=== PATIENT | female | born 1965 | race Caucasian/White ===

== ENCOUNTER 2016-05-14 09:28 | Inpatient (IN) | payer BC, OTHER ==
[2016-05-13 12:01] VITALS: BMI 40.4
[2016-05-14] VITALS (26 sets, daily range): BP systolic 90–140; BP diastolic 52–75; PULSE 69–106; RESP 10–23; Ht 167.6 cm; Wt 109.6 kg
[~2016-05-14] VITALS: Ht 167.6 cm; Wt 109.6 kg
[~2016-05-14 09:28] MED LIST: CEFAZOLIN 2 GM/50 ML (PMX) 50 ML IVPB ONE; SOD CHLORIDE 0.9% 1,000 ML IV SCH
[2016-05-14] MEDS ORDERED: DIAZ10TA4 PO (10:12)
[2016-05-14] MEDS ORDERED: ERYT250C52 PO (10:13)
[2016-05-14] MEDS ORDERED: LEVO100T82 PO (10:14)
[2016-05-14] MEDS ORDERED: LIOT5TAB3 PO (10:15)
[2016-05-14] MEDS ORDERED: OMEP20CA16 PO (10:16)
[2016-05-14] MEDS ORDERED: LOSA1TAB20 PO (10:16)
[2016-05-14] MEDS ORDERED: POTA20TA96 PO (10:17)
[2016-05-14] MEDS ORDERED: [UNRECOGNIZED DRUG - CODE] TP (10:18)
[2016-05-14] MEDS ORDERED: KEN1O TOP (10:22)
[2016-05-14 10:45] LABS: ADD SCAN DIFF NO
[2016-05-14 10:51] LABS: BASOPHILS % 0.3 % (0.0-2.0); EOSINOPHILS # 0.2 10^3/ul (0.0-0.5); EOSINOPHILS % 1.7 % (0.0-7.0); HEMATOCRIT 41.1 % (37.0-47.0); HEMOGLOBIN 13.9 g/dl (12.0-16.0); LYMPHOCYTES # 2.4 10^3/ul (0.8-2.9); LYMPHOCYTES % 27.5 % (15.0-51.0); MEAN CORPUSCULAR HEMOGLOBIN 28.5 pg (29.0-33.0); MEAN CORPUSCULAR HGB CONC 33.8 g/dl (32.0-37.0); MEAN CORPUSCULAR VOLUME 84.4 fl (82.0-101.0); MEAN PLATELET VOLUME 11.2 fl (7.4-10.4); MONOCYTE # 0.7 10^3/ul (0.3-0.9); MONOCYTES % 7.8 % (0.0-11.0); NEUTROPHIL # 5.4 10^3/ul (1.6-7.5); NEUTROPHILS % 62.4 % (39.0-77.0); PLATELET COUNT 282 10^3/UL (140-415); RED BLOOD COUNT 4.87 10^6/ul (4.20-5.40); WHITE BLOOD COUNT 8.6 10^3/ul (4.8-10.8)
[2016-05-14] MEDS ORDERED: PROPOFOL 100 ML ONE (11:41)
[2016-05-14] MEDS ORDERED: MIDAZOLAM 1 MG/ML 2 ML INJ ONE (11:41)
[2016-05-14] MEDS ORDERED: ROCURONIUM 50 MG INJ ONE (11:41)
[2016-05-14] MEDS ORDERED: HYDROmorphONE 2 MG/ML SYG ONE (11:41)
[2016-05-14] MEDS ORDERED: CEFAZOLIN 1 GM INJ ONE (11:42)
--- NOTE | 2016-05-14 12:03 | HPN ---
Date/Time of Note Date/Time of Note DATE: 05/14/16 TIME: 12:03 Interval H&P Admission Note Pt. seen H&P reviewed: No system changes DREW MORALES PA-C May 14, 2016 12:03
[2016-05-14] MEDS ORDERED: HYDROmorphONE 1 MG/ML SYG IV PRN (12:30)
[2016-05-14] MEDS ORDERED: NALOXONE (0.4 MG/ML) INJ IV PRN (12:30)
[2016-05-14] MEDS ORDERED: HYDROCODONE/APAP (10/325) TAB PO PRN (12:30)
[2016-05-14] MEDS ORDERED: CYCLOBENZAPRINE 10 MG TAB PO PRN (12:30)
[2016-05-14] MEDS ORDERED: ACETAMINOPHEN 325 MG TAB PO PRN (12:30)
[2016-05-14] MEDS ORDERED: DIPHENHYDRAMINE 50 MG INJ IV PRN ×2 (12:30→14:00)
[2016-05-14] MEDS ORDERED: ZOLPIDEM 5 MG TAB PO PRN (12:30)
[2016-05-14] MEDS ORDERED: AL HYDROX/MG HYDROX/SIMETH 30 ML CUP PO PRN (12:30)
[2016-05-14] MEDS ORDERED: HYDROmorphONE 0.2 MG/ML PCA IV SCH (12:30)
[2016-05-14] MEDS ORDERED: CEFAZOLIN 1 GM/50 ML (PMX) 50 ML IVPB SCH (12:30)
[2016-05-14] MEDS ORDERED: BISACODYL 10 MG SUPP PR PRN (12:30)
[2016-05-14] MEDS ORDERED: POLYMYXIN/BACITRACIN 1L IRRIG ONE ×2 (12:37→12:40)
[2016-05-14] MEDS ORDERED: SURGIFOAM POWDER 1 GM KIT ONE (12:39)
[2016-05-14] MEDS ORDERED: BUPIVACAINE 0.25%/EPI (SDV) 30 ML INJ ONE (12:40)
[2016-05-14] MEDS ORDERED: THROMBIN 5000 UNIT VIAL ONE (12:40)
[2016-05-14] MEDS ORDERED: PHENYLephrine (100 MCG/ML) 5ML SYG ONE (13:05)
[2016-05-14] MEDS ORDERED: ONDANSETRON 4 MG INJ IV PRN (14:00)
[2016-05-14] MEDS ORDERED: FENTAnyl 50 MCG/ML VIAL IV PRN ×3 (14:00)
[2016-05-14] MEDS ORDERED: ALBUMIN HUMAN 5% 250 ML IV PRN (14:00)
[2016-05-14] MEDS ORDERED: HYDROmorphONE (0.2 MG/ML) 10ML SYG IV PRN ×2 (14:00)
[2016-05-14] MEDS ORDERED: LABETALOL HCL 20MG INJ IV PRN (14:00)
[2016-05-14] MEDS ORDERED: EPHEDrine SULFATE 50 MG/5 ML SYG IV PRN (14:00)
[2016-05-14] MEDS ORDERED: hydrALAzine 20 MG INJ IV PRN (14:00)
[2016-05-14] MEDS ORDERED: MEPERIDINE 25 MG INJ IV PRN (14:00)
[2016-05-14] MEDS ORDERED: morphine (1 MG/ML) 10ML SYRINGE IV PRN ×3 (14:00)
[2016-05-14] MEDS ORDERED: METOCLOPRAMIDE 10 MG INJ ONE (14:18)
[2016-05-14] MEDS ORDERED: ONDANSETRON 4 MG INJ ONE ×2 (14:18→15:02)
[2016-05-14] MEDS ORDERED: FAMOTIDINE 20 MG INJ ONE (14:18)
[2016-05-14] MEDS ORDERED: DEXAMETHASONE 4 MG/ML 1 ML INJ ONE (14:18)
[2016-05-14] MEDS ORDERED: NEOSTIGMINE 3 MG/3 ML SYRINGE ONE (14:53)
[2016-05-14] MEDS ORDERED: GLYCOPYRROLATE 1 MG INJ ONE (14:53)
[2016-05-14] MEDS ORDERED: ACETAMINOPHEN 1000MG/100ML IV 100 ML ONE (14:54)
[2016-05-14] MEDS: HYDROmorphONE (0.2 MG/ML) 10ML SYG IV PRN ×4 (15:28→15:50)
--- NOTE | 2016-05-14 16:21 | RADRPT ---
PROCEDURE: Intraoperative imaging of the cervical spine with fluoroscopy. CLINICAL INDICATION: Neck pain. Intraoperative. TECHNIQUE: 3 images of the cervical spine were obtained in the operating room with an image intens ifier. No radiologist was in attendance. 14.4 seconds of fluoroscopy time was used. COMPARISON: No prior study is available for comparison. FINDINGS: Surgical instruments are noted overlying the cervical spine. The final images demonstrate anterior fusion with plate and screws at C6-7. IMPRESSION: 1. Intraoperative imaging of the cervical spine. RPTAT: QQ .Daryl Costa MD, MD Date Time Electronically viewed and signed by .Daryl Costa MD, on 05/14/2016 16:21 .R/
--- NOTE | 2016-05-14 16:21 | OPR ---
DATE OF OPERATION: 05/14/2016 PREOPERATIVE DIAGNOSES: 1. C6 to C7 disk herniation and stenosis with radiculopathy. 2. Morbid obesity (BMI 39) POSTOPERATIVE DIAGNOSES: 1. C6 to C7 disk herniation and stenosis with radiculopathy. 2. Morbid obesity (BMI 39) OPERATION PERFORMED: 1. Anterior cervical diskectomy and spinal cord decompression at C6 to C7. 2. Placement of intervertebral biomechanical device at C6 to C7. 3. Anterior hardware placement at C6 to C7. 4. Use of allograft. 5. Use of C-arm fluoroscopy with interpretation without radiologist present. 6. Use of operative microscope. 7. Intraoperative neuromonitoring (2 hours). IMPLANTS: 1. NeuroStructures Cavetto 5 x 14 x 16 mm PEEK cage. 2. NeuroStructures Transom 12 mm cervical plate with 14 mm screws. PRIMARY SURGEON: Roel Barone MD DETECTIVE AUTOMOBILE SECTION: DENILSON Rodriguez. NEED FOR RETAIL SALES LEAD: During this spinal surgical procedure, my assistant quality manager was used to retrac t and protect the spinal nerves and dural sac. My assistant quality manager also employed the suction catheters to evacuate blood from the surgical field to improve visualization of the neural structures. The pura tant was medically necessary to facilitate the completion of the surgery in a safe and expeditious m steven. State of [place] regulations, as well as hospital bylaws, preclude the use of non-license d health care personnel, such as operating room technicians, to perform these functions. FINDINGS: Neuromonitoring at the start of the case revealed left C7 amplitude down 30%, right C7 am plitude down 20%. At the end of the case, nerve signals returned to normal. The patient had hernia tion at C6 to C7 with a posterior osteophyte resulting in stenosis. ESTIMATED BLOOD LOSS: 40 mL. DRAINS: None. SPECIMENS: Disk was sent to Pathology. COMPLICATIONS OF PROCEDURES: None. ANESTHESIOLOGIST: Dr. Kelley TYPE OF ANESTHESIA: General. INDICATIONS FOR PROCEDURE: This is a 50-year-old female with chronic neck and arm pain in the setti ng of disk herniation and stenosis at C6 to C7. She has failed nonoperative measures; therefore, I recommended proceeding with the above-mentioned surgery. Preoperatively, we discussed the risks, be nefits, and alternatives. She understood and wished to proceed. DESCRIPTION OF PROCEDURE IN DETAIL: The patient was identified in the preoperative holding area, gi buddy Ancef antibiotic, taken to the operating room, where she was placed in the operative table in pace pine position. Neuromonitoring leads were placed, sequential compressive devices were applied. Ruben romonitoring was utilized during the procedure for 2 hours to include SSEP, MEP, and EMG. This was performed by [facility]. Start time was 1:00 p.m., closure time was 3:00 p.m. Towel rolls we re placed behind the neck and between the scapular blades. K-Pads were used to bring down the skin on the chest in order to visualize the neck. Due to the patient's morbid obesity, an additional 30 minutes were spent during the procedure due to the altered field. The neck was prepped and draped i n usual sterile fashion. A left-sided approach to the neck was made at the skin incision. The plat ysma was incised in line with the skin incision. I then identified an interval between the sternocl eidomastoid and strap muscles and identified the anterior spine. A bent spinal needle was placed in to what was felt to be the C6 to C7 level and a lateral film was obtained to confirm the correct lev els. Once this was confirmed, the longus colli musculature was subperiosteally dissected. I remove d anterior osteophytes at C6 to C7 and placed a self-retaining retractor. Anesthesiologist deflated and reinflated the endotracheal cuff. Next, a microscope was brought in and a radical diskectomy w as performed at the C6 to C7 level using curettes, Kerrison punches, pituitary rongeurs and a high s peed bur. The posterior longitudinal ligament was removed and the central extruded fragment was sujit ntified. I then removed the posterior osteophytes which were inferior to the disk space in order to further decompress the canal. Once this was done, all nerve signals returned to normal. I placed various trials and chose the appropriate graft height. I then took the PEEK cage, within which I pl aced allograft and I impacted the intervertebral biomechanical device into the C6-7 level to complet e the anterior fusion at this level. Next, I took the anterior cervical plate and placed this anter iorly at C6 to C7 with 14 mm screws. I locked down the screws next. I then took final AP and later al images and I was happy with placement of the hardware and alignment of the spine. The wound was then irrigated. Hemostasis was achieved with bipolar cautery and Surgifoam. The wound was dry and therefore, I elected not to place a drain. Retractors were removed, and the microscope was taken of f the field. Then, I closed the platysma with a running 2-0 Vicryl stitch. I then closed subcutane ous layer with a 3-0 Vicryl stitch. Dermabond was then applied. The patient was then awakened from anesthesia and taken to recovery room in stable condition. Lap, sponge, and instrument counts were correct x2. There were no apparent complications during the procedure. The patient will be admitted to the [facility] for routine postoperative care to include pain c ontrol, neurovascular checks, antibiotics, and physical therapy. Dictated By: ROEL MINAYA/TYSHAWN Conf#: [id number] DID#: [id number]
[2016-05-14] MEDS: ONDANSETRON 4 MG INJ IV PRN ×2 (17:23→23:21)
[2016-05-14] MEDS: D5W-0.45 NACL + KCL 20 MEQ 1,000 ML IV SCH ×2 (17:24→22:03)
--- NOTE | 2016-05-14 20:12 | CONS ---
DATE OF ADMISSION: 05/14/2016 DATE OF CONSULTATION: TYPE OF CONSULTATION: Medical. Thank you, Dr. Barone, for asking me to participate in medical management of this patient. REASON FOR CONSULTATION: To manage the patient's hypertension, gastroparesis and hypothyroidism. HISTORY OF PRESENT ILLNESS: This 50-year-old female is now postop a cervical spine surgery by Dr. Ava marquez. The patient was having intractable posterior neck, shoulder and arm pain from a C6-C7 spi nal stenosis. The patient underwent surgery today by Dr. Barone. He performed an anterior cervi jaimlah diskectomy and spinal cord decompression at the C6-7 level. The patient had a C6-C7 disk hernia tion with stenosis and radiculopathy. The patient is awake and alert at this time. She denies any chest pain or shortness of breath. She is having her pain controlled with a Dilaudid FILTERS ASSEMBLER. The alexi ent did see her primary care physician preoperatively. There is a note on the chart from Dr. Mohit Guadarrama and it details the patient's past medical history. PAST MEDICAL HISTORY: This patient has a history of: 1. Anemia. 2. Iron deficiency. 3. Gastroesophageal reflux disease. 4. Chronic constipation. 5. Irritable bowel syndrome. 6. Autoimmune hepatitis, treated with steroids in 2013. 7. Gastroparesis. 8. Hypothyroidism. 9. Generalized anxiety disorder. 10. History of thyrotoxicosis with thyroid crisis. 11. Essential hypertension. 12. Degenerative cervical spinal stenosis. PAST SURGICAL HISTORY: Upper gastrointestinal endoscopy, laparoscopic cholecystectomy, shoulder yogi snehal, lumbar spine epidural injection. CURRENT MEDICATIONS: Include the followin. Diazepam 10 mg at bedtime for sleep. 2. Erythromycin 250 mg 2 times a day for gastroparesis. 3. Levothyroxine 100 mcg daily. 4. Liothyronine 5 mcg daily. 5. Losartan HCT 100/25 p.o. daily. 6. Omeprazole 20 mg a day p.r.n. heartburn. 7. Potassium chloride 20 mEq p.o. daily. ALLERGIES: THE PATIENT HAS NO KNOWN DRUG ALLERGIES. SOCIAL HISTORY: The patient does not smoke. She does not drink alcohol. She is a homemaker. She lives with her family. PHYSICAL EXAMINATION: GENERAL: At this time reveals a well-developed, obese female in no apparent distress. VITAL SIGNS: Temperature is 98.1, pulse of 98, respirations 19, blood pressure 110/73, O2 saturatio n 95% on 2 liter nasal cannula. HEAD: Normocephalic. EYES: Extraocular muscles intact. NOSE AND MOUTH: Normal. NECK: There is a fresh wound on the left side of her neck which is closed without any swelling or e rythema. HEART: Regular rhythm. No murmurs, gallops or rubs. LUNGS: Clear to auscultation. ABDOMEN: Soft, nontender, no masses or megaly. EXTREMITIES: No peripheral edema. IMPRESSION: This patient is stable after surgery today. Her vital signs are acceptable. Her blood pressure is controlled. She did take her antihypertensive and thyroid medication preoperatively th is morning. The patient has had some nausea with vomiting. This seems to be subsiding. PLAN: 1. Resume some routine medications. 2. Check labs in the morning. 3. Postop cervical spine surgery. 4. I will follow the patient along with you. Dictated By: VIJI MATIAS MD, ND/TYSHAWN Conf#: [id number] DID#: [id number]
[2016-05-14] MEDS: CEFAZOLIN 1 GM/50 ML (PMX) 50 ML IVPB SCH (20:37)
[2016-05-14] MEDS ORDERED: DIAZEPAM 5 MG TAB PO SCH (21:00)
[2016-05-14] MEDS: TRIAMCINOLONE ACET 0.1% 15 GM OINT TOP SCH (21:00)
[2016-05-14] MEDS: DOCUSATE SODIUM 100 MG CAP PO SCH (21:00)
[2016-05-14] MEDS: ERYTHROMYCIN BASE (EC) 250 MG TAB PO SCH (21:59)
[2016-05-15] MEDS: TRIMETHOBENZAMIDE 100 MG/ML VIAL IM PRN ×2 (00:47→09:10)
[2016-05-15] MEDS: D5W-0.45 NACL + KCL 20 MEQ 1,000 ML IV SCH (03:05)
[2016-05-15] MEDS: CEFAZOLIN 1 GM/50 ML (PMX) 50 ML IVPB SCH ×2 (05:26→12:50)
[2016-05-15] MEDS: ONDANSETRON 4 MG INJ IV PRN (05:26)
[2016-05-15 05:29] LABS: ADD SCAN DIFF NO
[2016-05-15 05:41] VITALS: BP 114/64; PULSE 63; RESP 18
[2016-05-15 05:46] LABS: BASOPHILS % 0.1 % (0.0-2.0); HEMATOCRIT 39.6 % (37.0-47.0); HEMOGLOBIN 12.9 g/dl (12.0-16.0); LYMPHOCYTES # 1.2 10^3/ul (0.8-2.9); LYMPHOCYTES % 8.2 % (15.0-51.0); MEAN CORPUSCULAR HEMOGLOBIN 28.4 pg (29.0-33.0); MEAN CORPUSCULAR HGB CONC 32.6 g/dl (32.0-37.0); MEAN PLATELET VOLUME 10.5 fl (7.4-10.4); MONOCYTE # 0.4 10^3/ul (0.3-0.9); MONOCYTES % 2.9 % (0.0-11.0); NEUTROPHIL # 13.1 10^3/ul (1.6-7.5); NEUTROPHILS % 88.4 % (39.0-77.0); PLATELET COUNT 404 10^3/UL (140-415); RED BLOOD COUNT 4.55 10^6/ul (4.20-5.40); RED CELL DISTRIBUTION WIDTH 13.8 % (11.5-14.5); WHITE BLOOD COUNT 14.8 10^3/ul (4.8-10.8)
[2016-05-15 05:48] LABS: POTASSIUM 4.2 mmol/L (3.5-5.1)
[2016-05-15 05:50] LABS: CREATININE 0.62 mg/dl (0.44-1.00)
[2016-05-15 05:51] LABS: CALCIUM 9.3 mg/dl (8.4-10.2)
[2016-05-15] MEDS ORDERED: LEVOTHYROXINE 100 MCG TAB PO SCH (07:00)
[2016-05-15] MEDS ORDERED: LIOTHYRONINE 5 MCG TAB PO SCH (07:20)
[2016-05-15 07:44] VITALS: BP 117/69; RESP 17
--- NOTE | 2016-05-15 08:39 | PN ---
Date/Time of Note Date/Time of Note DATE: 05/15/16 TIME: 08:38 Assessment/Plan Lines/Catheters IV Catheter Type (from Nrsg): Peripheral IV Kidd in Place (from Nrsg): No Assessment/Plan Assessment/Plan D/C HISTORIOGRAPHY PROFESSOR start PO medications - norco and zofran as ordered please call if zofran insufficient continue with therapy today Subjective 24 Hr Interval Summary reports improvement arm sx c/o neck pain c/o nausea with HISTORIOGRAPHY PROFESSOR Exam/Review of Systems Vital Signs Vitals Vital Signs Date Time Temp Pulse Resp B/P Pulse Ox O2 Delivery O2 Flow Rate FiO2 05/15/16 07:44 97.8 63 17 117/69 95 05/15/16 05:41 Nasal Cannula 3.0 Intake and Output 05/14/16 05/14/16 05/15/16 15:00 23:00 07:00 Intake Total 1550 ml 1150 ml Output Total 30 ml 1100 ml Balance 1520 ml 50 ml Exam Free Text/Dictation NVID AOx3 Results Result Diagram: 05/15/16 0438 05/15/16 0438 DREW MORALES PA-C May 15, 2016 08:39
--- NOTE | 2016-05-15 08:50 | CONS ---
Date/Time of Note Date/Time of Note DATE: 05/15/16 TIME: 08:42 Assessment/Plan Assessment/Plan Chief Complaint/Hosp Course 1. she is 1 day post op a cervical spine surgery . she is having pain in neck and pain medication is being adjusted . 2. her labs are acceptable 3. will continue current medication and PT . Problems: Consultation Date/Type/Reason Admit Date/Time May 14, 2016 at 09:28 Initial Consult Date 24 HR Interval Summary Free Text/Dictation She is awake and alert . She is complaining of pain in the neck .Her nausea is better with Tigan . Exam/Review of Systems Vital Signs Vitals Vital Signs Date Time Temp Pulse Resp B/P Pulse Ox O2 Delivery O2 Flow Rate FiO2 05/15/16 07:44 97.8 63 17 117/69 95 05/15/16 05:41 Nasal Cannula 3.0 Intake and Output 05/14/16 05/14/16 05/15/16 15:00 23:00 07:00 Intake Total 1550 ml 1150 ml Output Total 30 ml 1100 ml Balance 1520 ml 50 ml Exam Constitutional: alert, oriented Respiratory: clear to auscultation Cardiovascular: regular rate and rhythm Musculoskeletal: nl extremities to inspection Results Result Diagram: 05/15/16 0438 05/15/16 0438 Results 24 hrs Laboratory Tests Test 05/14/16 10:28 05/15/16 04:38 Basophils # 0.0 0.0 Basophils % 0.3 0.1 Eosinophils # 0.2 0.0 Eosinophils % 1.7 0.0 Hematocrit 41.1 39.6 Hemoglobin 13.9 12.9 Lymphocytes # 2.4 1.2 Lymphocytes % 27.5 8.2 L Mean Corpuscular Hemoglobin 28.5 L 28.4 L Mean Corpuscular Hemoglobin Concent 33.8 32.6 Mean Corpuscular Volume 84.4 87.0 Mean Platelet Volume 11.2 H 10.5 H Monocytes # 0.7 0.4 Monocytes % 7.8 2.9 Neutrophils # 5.4 13.1 H Neutrophils % 62.4 88.4 H Nucleated Red Blood Cells # 0.0 0.0 Nucleated Red Blood Cells % 0.0 0.0 Platelet Count 282 404 # Red Blood Count 4.87 4.55 Red Cell Distribution Width 14.0 13.8 White Blood Count 8.6 14.8 #H Anion Gap 18 H Blood Urea Nitrogen 10 Calcium Level 9.3 Carbon Dioxide Level 28 Chloride Level 99 Creatinine 0.62 Glucose Level 172 Magnesium Level 2.0 Potassium Level 4.2 Sodium Level 141 Medications Medications Current Medications Potassium Chloride/Dextrose/ Sod Cl (D5-1/2ns + KCl 20 Meq) 1,000 ml @ 100 mls/ hr Q10H IV Last administered on 05/15/16 03:05; Admin Dose 100 MLS/HR; Start at 12:03 Acetaminophen/ Hydrocodone Bitart (Camby (10/325)) 1 tab Q4H PRN PO PAIN LEVEL 1-5; Start 05/14/16 at 12:30; Status Future Hold Acetaminophen/ Hydrocodone Bitart (Camby (10/325)) 2 tab Q4H PRN PO PAIN LEVEL 6-10; Start 05/14/16 at 12:30; Status Future Hold Hydromorphone HCl (Dilaudid) 0.2 mg Q1H PRN IV BREAKTHROUGH PAIN; Start at 12:30 Ondansetron HCl (Zofran Inj) 4 mg Q6H PRN IV NAUSEA AND/OR VOMITING Last administered on 05/15/16 05:26; Admin Dose 4 MG; Start 05/14/16 at 12:30 Bisacodyl (Dulcolax Supp) 10 mg DAILY PRN UT CONSTIPATION; Start 05/14/16 at 12 :30 Docusate Sodium (Colace) 100 mg BID PO ; Start 05/14/16 at 21:00 Al Hydrox/Mg Hydrox/Simethicone (Mag-Al Plus) 15 ml Q6H PRN PO CONSTIPATION/ DYSPEPSIA; Start 05/14/16 at 12:30 Acetaminophen (Tylenol Tab) 650 mg Q4H PRN PO ALATORRE OR TEMP GREATER THAN 101.3F; Start 05/14/16 at 12:30 Cyclobenzaprine HCl (Flexeril) 10 mg TID PRN PO MUSCLE SPASMS; Start 05/14/16 at 12:30 Phenol (Cepastat Lozenge) 1 lozenge PRN PRN MT SORE THROAT; Start 05/14/16 at 12:30 Diphenhydramine HCl (Benadryl) 25 mg Q6H PRN IV ITCHING Last administered on 15:46; Admin Dose 25 MG; Start 05/14/16 at 12:30 Naloxone HCl (Narcan) 0.2 mg Q2M PRN IV RR 8 BREATHS/MIN OR LESS; Start at 12:30 Hydromorphone HCl (Dilaudid PHYSICAL THERAPY RESIDENT) PHYSICAL THERAPY RESIDENT to be started in PACU Q4PCA IV Last administered on 05/14/16 15:40; Admin Dose 6 MG; Start 05/14/16 at 12:30 Miscellaneous Information 1. Hold PHYSICAL THERAPY RESIDENT at 1,000... PHYSICAL THERAPY RESIDENT IV ; Start 05/14/16 at 12: 30 Cefazolin Sodium (Ancef 1 Gm/50 ml (Pmx)) 50 ml @ 100 mls/hr Q8H IVPB Last administered on 05/15/16 05:26; Admin Dose 100 MLS/HR; Start 05/14/16 at 21:00; Stop 05/15/16 at 13:29 Diazepam (Valium) 10 mg QHS PO Last administered on 05/14/16 21:59; Admin Dose 10 MG; Start 05/14/16 at 21:00 Erythromycin (Erythromycin Base (Ec)) 250 mg BID PO Last administered on 21:59; Admin Dose 250 MG; Start 05/14/16 at 21:00 Triamcinolone Acetonide (Kenalog 0.1% Oint) 1 applic BID TOP ; Start 05/14/16 at 21:00 Miscellaneous Information (*Order Clarification Bulletin) TRIAMCINOLONE OINTMENT ; PLE... Q8H XX ; Start 05/14/16 at 20:00 Trimethobenzamide HCl (Tigan) 200 mg Q8H PRN IM NAUSEA AND/OR VOMITING Last administered on 05/15/16 00:47; Admin Dose 200 MG; Start 05/15/16 at 00:30 VIJI MATIAS MD May 15, 2016 08:50
[2016-05-15] MEDS: ERYTHROMYCIN BASE (EC) 250 MG TAB PO SCH (08:53)
[2016-05-15] MEDS: TRIAMCINOLONE ACET 0.1% 15 GM OINT TOP SCH (08:57)
[2016-05-15] MEDS: DOCUSATE SODIUM 100 MG CAP PO SCH (08:57)
[2016-05-15] MEDS: CEPASTAT LOZENGE MT PRN ×2 (09:10→14:58)
[2016-05-15] MEDS: HYDROCODONE/APAP (10/325) TAB PO PRN ×2 (09:11→14:57)
--- NOTE | 2016-05-15 13:14 | DS ---
DATE OF ADMISSION: 05/14/2016 DATE OF DISCHARGE: 05/15/2016 ADMITTING DIAGNOSIS: Cervical stenosis. DISCHARGE DIAGNOSIS: Cervical stenosis. PROCEDURE: Patient WAS taken to the operating room on 05/14/2016, underwent ACDF at C6-C7. HOSPITAL COURSE: Patient admitted to [facility] after undergoing above procedure. By postop d ay 1, she was deemed stable for discharge with followup arranged with the undersigned. Mich was c alled into the pharmacy. Dictated By: NICOLETTE RODRIGUEZ MD BB/NTS Conf#: [id number] DID#: [id number]
== END 2016-05-15 16:15 | disposition home or self-care (01) | DRG 473 ==
LOC: REC 09:28 → MS1 16:50
PROVIDERS: ADMIT Specialist; ATTEND Specialist
PROC: 0RT30ZZ Resection of Cervical Vertebral Disc, Open Approach (ICD-10-PCS; 2016-05-14)
PROC: 0RG10A0 Fusion of Cervical Vertebral Joint with Interbody Fusion Device, Anterior Approach, Anterior Column, Open Approach (ICD-10-PCS; principal; 2016-05-14 12:30)
DX: M50.123 Cervical disc disorder at C6-C7 level with radiculopathy (principal); E66.01 Morbid (severe) obesity due to excess calories; I10 Essential (primary) hypertension; M48.02 Spinal stenosis, cervical region; M47.22 Other spondylosis with radiculopathy, cervical region; E03.9 Hypothyroidism, unspecified; K21.9 Gastro-esophageal reflux disease without esophagitis; Z68.39 Body mass index [BMI] 39.0-39.9, adult
CPT/HCPCS: 72040; 80048; 83735; 84703; 85025; 97116; 97162; 97530; C1713; J0131; J0690; J1100; J1170; J1200; J1644; J2250; J2370; J2405; J2710; J2765; J3250; J3480

== ENCOUNTER 2017-03-03 10:00 | Inpatient (IN) | payer OTHER ==
[~2017-03-03] VITALS: Ht 167.6 cm; Wt 110.9 kg
[2017-03-03] VITALS (24 sets, daily range): BP systolic 82–141; BP diastolic 36–98; PULSE 94–120; RESP 10–19; Ht 167.6 cm; Wt 110.9 kg
[~2017-03-03 10:00] MED LIST changes: +ATROPINE 1 MG/10 ML SYRINGE IV PRN; -CEFAZOLIN 2 GM/50 ML (PMX) 50 ML IVPB ONE; +DIAZ10TA4 PO; +DIPHENHYDRAMINE 50 MG INJ IV PRN; +EPHEDrine SULFATE 50 MG/5 ML SYG IV PRN; +ERYT250C52 PO; +FENTAnyl 50 MCG/ML VIAL IV PRN; +FENTAnyl 50 MCG/ML VIAL ONE; +GLYCOPYRROLATE 0.4 MG INJ ONE; +HYDROmorphONE (0.2 MG/ML) 10ML SYG IV PRN; +KEN1O TOP; +LABETALOL HCL 20MG INJ IV PRN; +LEVO100T82 PO; +LIDOCAINE 2% (SDV) 5 ML INJ ONE; +LIOT5TAB3 PO; +LOSA1TAB25 PO; +MEPERIDINE 25 MG INJ IV PRN; +MIDAZOLAM 1 MG/ML 2 ML INJ IV PRN; +MIDAZOLAM 1 MG/ML 2 ML INJ ONE; +NEOSTIGMINE 3 MG/3 ML SYRINGE ONE; +OMEP20CA16 PO; +ONDANSETRON 4 MG INJ IV PRN; +OXYCODONE/ACETAMINOPHEN (5/325) TAB PO PRN; +POTA20TA96 PO; +PROPOFOL 20 ML ONE; +ROCURONIUM 50 MG INJ ONE; -SOD CHLORIDE 0.9% 1,000 ML IV SCH; +SUCCINYLCHOLINE CHLORIDE 100 MG/5 ML SYG IV ONE; +[UNRECOGNIZED DRUG - CODE] TP; +hydrALAzine 20 MG INJ IV PRN; +morphine (1 MG/ML) 10ML SYRINGE IV PRN
[2017-03-03] MEDS ORDERED: FOLI-49 PO (11:02)
--- NOTE | 2017-03-03 11:08 | RADRPT ---
PROCEDURE: XR Chest 1 View. CLINICAL INDICATION: Abnormal breath sounds, preop. TECHNIQUE: Single view of the chest was obtained. COMPARISON: None. FINDINGS: The cardiomediastinal silhouette is within normal limits. No consolidations are identified. No pneu mothorax is seen. Osseous structures are intact. IMPRESSION: No visualized active disease. RPTAT: AA .Clarke Garsia MD, Date Time Electronically viewed and signed by .Clarke Garsia MD, on 03/03/2017 11:08 .P/
[2017-03-03 11:15] LABS: BASOPHILS % 0.4 % (0.0-2.0); EOSINOPHILS # 0.2 10^3/ul (0.0-0.5); EOSINOPHILS % 1.5 % (0.0-7.0); HEMATOCRIT 40.1 % (37.0-47.0); LYMPHOCYTES # 2.7 10^3/ul (0.8-2.9); LYMPHOCYTES % 23.8 % (15.0-51.0); MEAN CORPUSCULAR HEMOGLOBIN 28.9 pg (29.0-33.0); MEAN CORPUSCULAR HGB CONC 34.9 g/dl (32.0-37.0); MEAN CORPUSCULAR VOLUME 82.7 fl (82.0-101.0); MEAN PLATELET VOLUME 10.3 fl (7.4-10.4); MONOCYTE # 0.8 10^3/ul (0.3-0.9); MONOCYTES % 7.1 % (0.0-11.0); NEUTROPHIL # 7.5 10^3/ul (1.6-7.5); NEUTROPHILS % 66.8 % (39.0-77.0); PLATELET COUNT 426 10^3/UL (140-415); RED BLOOD COUNT 4.85 10^6/ul (4.20-5.40); RED CELL DISTRIBUTION WIDTH 13.8 % (11.5-14.5); WHITE BLOOD COUNT 11.2 10^3/ul (4.8-10.8)
[2017-03-03] MEDS ORDERED: DEXAMETHASONE 4 MG/ML 1 ML INJ ONE (11:27)
[2017-03-03] MEDS ORDERED: ONDANSETRON 4 MG INJ ONE ×3 (11:27→19:54)
[2017-03-03 11:34] LABS: INR 1.03; PARTIAL THROMBOPLASTIN TIME 30.6 Sec (25.0-35.0); PROTIME 13.6 Sec (11.9-14.9); PT RATIO 1.1
[2017-03-03 11:41] LABS: ALBUMIN 4.2 g/dl (3.3-4.9); ALBUMIN/GLOBULIN RATIO 1.1; BILIRUBIN,INDIRECT 0.2 mg/dl (0-1.1); BILIRUBIN,TOTAL 0.2 mg/dl (0.2-1.3); CALCIUM 9.9 mg/dl (8.4-10.2); CREATININE 0.76 mg/dl (0.44-1.00); POTASSIUM 3.7 mmol/L (3.5-5.1)
--- NOTE | 2017-03-03 11:56 | HPN ---
Date/Time of Note Date/Time of Note DATE: 03/03/17 TIME: 11:56 Interval H&P Admission Note Pt. seen H&P reviewed: No system changes DREW MORALES PA-C Mar 03, 2017 11:56
[2017-03-03] MEDS ORDERED: OXYCODONE/ACETAMINOPHEN (10/325) TAB PO PRN (12:00)
[2017-03-03] MEDS ORDERED: ONDANSETRON 4 MG INJ IV PRN ×2 (12:00→20:00)
[2017-03-03] MEDS ORDERED: ACETAMINOPHEN 325 MG TAB PO PRN (12:00)
[2017-03-03] MEDS ORDERED: CEPASTAT LOZENGE MT PRN (12:00)
[2017-03-03] MEDS ORDERED: ZOLPIDEM 5 MG TAB PO PRN (12:00)
[2017-03-03] MEDS ORDERED: HYDROmorphONE 0.5 MG/0.5 ML SYG IV PRN (12:00)
[2017-03-03] MEDS: CEFAZOLIN 1 GM/50 ML (PMX) 50 ML IVPB SCH ×2 (12:00→21:39)
[2017-03-03] MEDS ORDERED: BISACODYL 10 MG SUPP PR PRN (12:00)
[2017-03-03] MEDS ORDERED: NALOXONE (0.4 MG/ML) INJ IV PRN (12:00)
[2017-03-03] MEDS ORDERED: AL HYDROX/MG HYDROX/SIMETH 30 ML CUP PO PRN (12:00)
[2017-03-03 12:18] LABS: ADD UMIC YES; UR ASCORBIC ACID NEGATIVE (NEGATIVE); UR BACTERIA FEW /HPF (NONE SEEN); UR BILIRUBIN (Dip) NEGATIVE (NEGATIVE); UR BLOOD (Dip) NEGATIVE (NEGATIVE); UR CLARITY SLIGHTLY CLOUDY (CLEAR); UR COLOR YELLOW (YELLOW); UR GLUCOSE (Dip) NEGATIVE (NEGATIVE); UR KETONES (Dip) NEGATIVE (NEGATIVE); UR LEUKOCYTE ESTERASE (Dip) 2+ Leu/ul (NEGATIVE); UR NITRITE (Dip) NEGATIVE (NEGATIVE); UR RBC 2 /HPF (0-5); UR SPECIFIC GRAVITY (Dip) 1.013 (1.003-1.030); UR SQUAMOUS EPITHELIAL CELL MODERATE /HPF (FEW); UR TOTAL PROTEIN (Dip) NEGATIVE (NEGATIVE); UR UROBILINOGEN (Dip) NEGATIVE (NEGATIVE)
[2017-03-03] MEDS ORDERED: THROMBIN 5000 UNIT VIAL ONE (12:24)
[2017-03-03] MEDS ORDERED: BUPIVACAINE 0.25% (MPF) 30 ML INJ ONE (12:24)
[2017-03-03] MEDS ORDERED: GELATIN SIZE 100 SPONGE ONE (12:24)
[2017-03-03] MEDS ORDERED: BUPIVACAINE 0.25%/EPI (SDV) 30 ML INJ ONE (12:24)
[2017-03-03] MEDS ORDERED: CEFAZOLIN 1 GM INJ ONE ×2 (12:24→17:06)
[2017-03-03] MEDS ORDERED: SURGIFOAM POWDER 1 GM KIT ONE (12:24)
[2017-03-03] MEDS ORDERED: HEPARIN 1000 UNITS/ML 10 ML INJ ONE (12:25)
[2017-03-03] MEDS ORDERED: CA CHLORIDE 10% 10 ML SYRINGE ONE (12:25)
[2017-03-03] MEDS ORDERED: FUROSEMIDE 20 MG INJ ONE (16:48)
--- NOTE | 2017-03-03 17:16 | SIPON ---
Date/Time of Note Date/Time of Note DATE: 03/03/17 TIME: 17:15 Operative Report Preoperative Diagnosis L4-5 and L5-S1 DDD and stenosis Postoperative Diagnosis L4-5 and L5-S1 DDD and stenosis Operation/Procedure Performed L4-5 and L5-S1 fusion Surgeon see signature line cataloging assistant co -surgeon: geovanni Anesthesia: general Estimated blood loss: 250 - 300 ml's Transfusion Required none Specimen L4-5 and L5-S1 Disk Grafts/Implants cage and plate Complications none NICOLETTE RODRIGUEZ MD Mar 03, 2017 17:16
[2017-03-03] MEDS ORDERED: PHENYLephrine (100 MCG/ML) 5ML SYG ONE (17:57)
[2017-03-03 19:33] LABS: AADO2 Arterial 478.3 mmHg (7.0-24.0); Arterial Base Excess -3.4 mmol/L (-3.0-3); Arterial COHb 0.3 % (0.0-3.0); Arterial Fraction of Oxyhgb 98.4 % (93.0-99.0); Arterial HCO3 22.6 mmol/L (22.0-26.0); Arterial MetHb 0.2 % (0.0-1.5); Arterial Total Hemglobin 12.4 g/dl (12.0-18.0); MODE ANESTHETIC MACH
[2017-03-03 19:52] LABS: ABNORMAL IP MESSAGE 1; BASOPHILS % 0.2 % (0.0-2.0); EOSINOPHILS % 0.1 % (0.0-7.0); HEMATOCRIT 34.9 % (37.0-47.0); HEMOGLOBIN 11.6 g/dl (12.0-16.0); LYMPHOCYTES # 1.7 10^3/ul (0.8-2.9); LYMPHOCYTES % 7.6 % (15.0-51.0); MEAN CORPUSCULAR HEMOGLOBIN 28.6 pg (29.0-33.0); MEAN CORPUSCULAR HGB CONC 33.2 g/dl (32.0-37.0); MEAN CORPUSCULAR VOLUME 86.2 fl (82.0-101.0); MEAN PLATELET VOLUME 10.4 fl (7.4-10.4); MONOCYTE # 0.4 10^3/ul (0.3-0.9); MONOCYTES % 1.9 % (0.0-11.0); NEUTROPHIL # 20.1 10^3/ul (1.6-7.5); NEUTROPHILS % 88.8 % (39.0-77.0); PLATELET COUNT 410 10^3/UL (140-415); RED BLOOD COUNT 4.05 10^6/ul (4.20-5.40); RED CELL DISTRIBUTION WIDTH 13.8 % (11.5-14.5); WHITE BLOOD COUNT 22.6 10^3/ul (4.8-10.8)
[2017-03-03] MEDS ORDERED: DIPHENHYDRAMINE 50 MG INJ ONE (19:54)
[2017-03-03] MEDS ORDERED: HYDROmorphONE (0.2 MG/ML) 10ML SYG IV ONE (19:54)
[2017-03-03 19:57] LABS: INR 1.13; PROTIME 14.7 Sec (11.9-14.9); PT RATIO 1.1
[2017-03-03 19:58] LABS: PARTIAL THROMBOPLASTIN TIME 28.5 Sec (25.0-35.0)
[2017-03-03] MEDS: HYDROmorphONE (0.2 MG/ML) 10ML SYG IV PRN ×2 (19:59→20:06)
[2017-03-03] MEDS ORDERED: DIPHENHYDRAMINE 50 MG INJ IV PRN (20:00)
[2017-03-03] MEDS ORDERED: GLUCAGON 1 MG INJ IM PRN (20:00)
[2017-03-03] MEDS ORDERED: KETOROLAC 30 MG INJ IV PRN (20:00)
[2017-03-03] MEDS ORDERED: DEXTROSE 50% 50 ML SYRINGE IV PRN ×2 (20:00)
[2017-03-03] MEDS ORDERED: LORAZEPAM 2 MG INJ IV PRN (20:00)
[2017-03-03] MEDS ORDERED: OXYCODONE/ACETAMINOPHEN (5/325) TAB PO PRN ×2 (20:00)
[2017-03-03] MEDS ORDERED: LABETALOL HCL 20MG INJ IV PRN (20:00)
[2017-03-03] MEDS ORDERED: INSULIN ASPART [NOVOLOG] 3 ML PEN SC ONE (20:00)
[2017-03-03] MEDS ORDERED: HYDROmorphONE (0.2 MG/ML) 10ML SYG IV PRN ×2 (20:00)
[2017-03-03] MEDS ORDERED: hydrALAzine 20 MG INJ IV PRN (20:00)
[2017-03-03] MEDS ORDERED: METOCLOPRAMIDE 10 MG INJ IV PRN (20:00)
[2017-03-03] MEDS ORDERED: PROCHLORPERAZINE 10 MG INJ IV PRN (20:00)
[2017-03-03] MEDS ORDERED: GLUCOSE GEL 15 GRAM TUBE PO PRN ×2 (20:00)
[2017-03-03] MEDS ORDERED: MEPERIDINE 25 MG INJ IV PRN (20:00)
[2017-03-03] MEDS ORDERED: GLUCOSE GEL 15 GRAM TUBE BUCCAL PRN (20:00)
[2017-03-03] MEDS ORDERED: EPHEDrine SULFATE 50 MG/5 ML SYG IV PRN (20:00)
[2017-03-03] MEDS ORDERED: TRIMETHOBENZAMIDE 100 MG/ML VIAL IM PRN (20:00)
[2017-03-03 20:03] LABS: POTASSIUM 3.5 mmol/L (3.5-5.1)
[2017-03-03 20:04] LABS: CALCIUM 8.2 mg/dl (8.4-10.2); CREATININE 0.72 mg/dl (0.44-1.00)
[2017-03-03] MEDS: HYDROmorphONE 0.2 MG/ML PCA IV SCH (20:10)
[2017-03-03 20:13] LABS: HOLD TRANSMISSIONS 1; POSITIVE DIFF @See below
[2017-03-03] MEDS: D5W-0.45 NACL + KCL 20 MEQ 1,000 ML IV SCH ×2 (21:38→21:56)
[2017-03-03] MEDS: CYCLOBENZAPRINE 10 MG TAB PO PRN (21:39)
[2017-03-03] MEDS: DOCUSATE SODIUM 100 MG CAP PO SCH (21:42)
[2017-03-03] MEDS ORDERED: VITAMIN A & D 5 GM OINT PACKET TOP ONE (22:33)
[2017-03-03] MEDS: DIPHENHYDRAMINE 50 MG INJ IV PRN (22:51)
[2017-03-04 00:15] VITALS: BP 124/59; PULSE 113; RESP 18
[2017-03-04 01:15] VITALS: BP 112/64; RESP 18
[2017-03-04] MEDS ORDERED: ONDANSETRON 4 MG INJ IV PRN (03:00)
[2017-03-04] MEDS ORDERED: PANTOPRAZOLE 40 MG INJ IV ONE (03:00)
[2017-03-04] MEDS: CEFAZOLIN 1 GM/50 ML (PMX) 50 ML IVPB SCH (03:16)
[2017-03-04 03:35] VITALS: BP 129/64; PULSE 106; RESP 18
[2017-03-04] MEDS ORDERED: INSULIN ASPART [NOVOLOG] 3 ML PEN SC SCH ×3 (05:00→11:10)
--- NOTE | 2017-03-04 06:19 | OPR ---
DATE OF OPERATION: 03/03/2017 PREOPERATIVE DIAGNOSIS: L4-L5, L5-S1 disk disease with stenosis. POSTOPERATIVE DIAGNOSIS: L4-L5, L5-S1 disk disease with stenosis. PROCEDURE: 1. Anterior lumbar interbody fusion at L4-L5 and L5-S1. 2. Placement of intervertebral biomechanical device at L4-L5 and L5-S1. 3. Anterior hardware placement at L4-L5 and L5-S1. 4. Use of allograft. 5. Application of NuShield device. 6. Left iliac crest bone marrow aspiration. 7. Intraoperative neuromonitoring (2.5 hours). 8. Use of C-arm fluoroscopy with interpretation without radiologist present. IMPLANTS: 1. [place] Tesera stand alone, 15 mm x 38 mm x 30 mm, at both L4-L5 and L5-S1 with 7 degrees at L4-L 5 and 12 degrees at L5-S1. 2. Fibergraft matrix. PRIMARY SURGEON: Roel Barone MD COSURGEON: Tang Li MD SECOND FREELANCE GRAPHIC DESIGNER: DENILSON Rodriguez NEED FOR COSURGEON: A co-surgeon was required in order to retract the neurovascular elements. FINDINGS: Neuromonitoring at the start of the case revealed L3 amplitude down 10% bilaterally, L4 a mplitude down 30% bilaterally. S1 amplitude to be down 40% bilaterally. Left L5 down 40%, right L5 down 60%. At the end of the case, nerve signals returned to normal. The patient had stenosis at L 4-L5 and L5-S1. ESTIMATED BLOOD LOSS: 250 mL. DRAINS: None. SPECIMENS: L4-L5 and L5-S1 disk. COMPLICATIONS OF PROCEDURES: None. ANESTHESIOLOGIST: Dr. Dhillon. TYPE OF ANESTHESIA: General. INDICATIONS FOR PROCEDURE: This is a 51-year-old female with back and lower extremity pain in the s etting of disk disease and stenosis. She failed nonoperative measures, therefore I recommended that she undergo the above surgery. Preoperatively, we discussed the risks, benefits, and alternatives. She understood and wished to proceed. DESCRIPTION OF PROCEDURE IN DETAIL: The patient was identified in the preoperative holding area, [facility], taken to the operating room, where she was successfully placed under general a nesthesia. Neuromonitoring leads were placed, sequential compressive devices were applied. Kidd c atheter was introduced. Arterial line was placed. Neuromonitoring was utilized during the procedur e for 2.5 hours to include SSEP, MEP, and EMG. This was performed by [facility]. Start time was 3:00 p.m., closure time was 5:30 p.m. The patient was placed in supine position. Abdomen was p repped and draped in usual sterile fashion. All bony prominences were well padded. Initially, an i ncision was made over the left iliac crest, staying lateral to the ASIS. Bone marrow aspiration was performed and then the stitch was closed. Next, Dr. Li made an abdominal incision and perfo rmed an anterior retroperitoneal approach. He will dictate the approach separately. Once he expose d the spine, I placed a bent spinal needle into the L5-S1 level to confirm the correct levels. Next , I performed radical diskectomies at both L4-L5 and L5-S1 using curettes, Kerrison punches, pituita ry rongeurs. I used dilators to open up the disk spaces. I prepared the endplates with rasps. I p laced various trials and chose the appropriate graft height. Once this was done, I took the titaniu m cage within which I placed allograft and I impacted an intervertebral biomechanical device into th e L4-L5 and another one at L5-S1 to complete the anterior lumbar interbody fusion at both places. I then placed anterior plates at L4-L5 and L5-S1 with 30 mm screws. The screw on the right at L4-L5 was not advancing appropriately, and therefore I elected not to place a screw at this level. Once t he hardware was in, I took AP and lateral images and I was happy with placement of the hardware and alignment of the spine. The wound was irrigated. NuShield device was placed anteriorly. Dr. Claudine gill then proceeded to close the wound in layers and he will dictate the closure separately. At the end of the case, 4 quadrant abdominal films were obtained and there was no retained hardware. Lap, sponge counts were correct x2 at the end of the surgery. Upon completion, the patient will be rob sferred into prone position for stage 2 and this portion will be dictated separately. Dictated By: ROEL MINAYA/TYSHAWN Conf#: [id number] DID#: [id number] CC: TANG LI MD;*End*
--- NOTE | 2017-03-04 06:38 | OPR ---
DATE OF OPERATION: 03/03/2017 PREOPERATIVE DIAGNOSES: Status post anterior lumbar interbody fusion at L4-L5 and L5-S1. POSTOPERATIVE DIAGNOSIS: Status post anterior lumbar interbody fusion at L4-L5 and L5-S1. OPERATION PERFORMED: 1. Pedicle screw placement at L4-L5, S1 posteriorly. 2. Posterolateral fusion at L4-L5 and L5-S1. 3. Use of allograft. 4. Use of C-arm fluoroscopy with interpretation without radiologist present. 5. Intraoperative neuromonitoring (2 hours). IMPLANTS: 1. Moseley Cash 6.5 x 40 mm screws. 2. Fibergraft matrix. FINDINGS: Neuromonitoring at the start and at the end of the case were normal. Please see body of dictation for full details. ESTIMATED BLOOD LOSS: 40 mL. DRAINS: None. SPECIMENS: None. COMPLICATIONS OF PROCEDURES: None. ANESTHESIOLOGIST: Viridiana Escobedo CRNA TYPE OF ANESTHESIA: General. INDICATIONS FOR PROCEDURE: This is a 51-year-old female who completed stage I surgery, which was an terior fusion at L4-L5 and L5-S1. That stage is dictated separately. She now presents for [facility]. DESCRIPTION OF PROCEDURE IN DETAIL: The patient was placed on the operative table in the prone posi tion over a Jaycob frame. All bony prominences were well padded. The back was then prepped and paresh ped in usual sterile fashion. Neuromonitoring was utilized during this stage of the procedure for 2 hours to include SSEP, MEP and EMG. This was performed by Epunchit. Start time was 5:30 p .m., closure time was 7:30 p.m. Using the C-arm fluoroscope, I identified the incision site. I ane sthetized the skin with Marcaine and epinephrine. Parasagittal incisions were made from L4 to the s acrum. The skin was incised. I next passed Jamshidi needles into the L4, L5, and S1 pedicles bilat erally. Due to the patient's obesity with BMI of 39, visualization was difficult on the C-arm fluor oscope for these percutaneous screws. I was concerned about placement of the left L5 Jamshidi needl e and therefore, I elected to remove this. This was a difficult pedicle to see. I then passed guid ewires and removed the Jamshidi needles and placed pedicle screws at L4 bilaterally, S1 bilaterally and on the right at L5 using 6.5 x 40 mm screws throughout. Once the screws were in place, I stimul ated each of the screws and there was no evidence of cortical breach. I then placed the 75 mm jr b ilaterally with placement of set screws with tightening per manufacture specifications. I then irri gated the wound and took final AP and lateral images. I was happy with the placement of the hardwar e and alignment of the spine. The patient got another dose of antibiotics at this point. I then to ok the allograft and placed this posterolaterally for posterolateral fusion at L4-L5 and L5-S1. I lilia baeza closed the deep fascia with a #1 Vicryl stitch. I then closed subcutaneous tissue with a 2-0 V icryl stitch. Dermabond was then applied. The patient was then awakened from anesthesia, taken to recovery room in stable condition. Lap, sponge, and instrument counts were correct x2. There were no apparent complications during the procedure. The patient will be admitted to the [facility] for routine postoperative care to include pain c ontrol, neurovascular checks, antibiotics, and physical therapy. Dictated By: NICOLETTE RODRIGUEZ MD BB/TYSHAWN Conf#: [id number] DID#: [id number] CC: NICOLETTE RODRIGUEZ MD; VIJI MATIAS MD;*[facility]*
[2017-03-04 07:22] VITALS: BP 121/72; RESP 18
[2017-03-04 07:28] LABS: BASOPHILS % 0.1 % (0.0-2.0); HEMATOCRIT 33.3 % (37.0-47.0); HEMOGLOBIN 10.8 g/dl (12.0-16.0); LYMPHOCYTES # 1.1 10^3/ul (0.8-2.9); LYMPHOCYTES % 8.1 % (15.0-51.0); MEAN CORPUSCULAR HEMOGLOBIN 28.3 pg (29.0-33.0); MEAN CORPUSCULAR HGB CONC 32.4 g/dl (32.0-37.0); MEAN CORPUSCULAR VOLUME 87.4 fl (82.0-101.0); MEAN PLATELET VOLUME 10.2 fl (7.4-10.4); MONOCYTE # 1.3 10^3/ul (0.3-0.9); MONOCYTES % 9.5 % (0.0-11.0); NEUTROPHIL # 11.5 10^3/ul (1.6-7.5); NEUTROPHILS % 81.7 % (39.0-77.0); PLATELET COUNT 369 10^3/UL (140-415); RED BLOOD COUNT 3.81 10^6/ul (4.20-5.40); WHITE BLOOD COUNT 14.1 10^3/ul (4.8-10.8)
[2017-03-04 07:49] LABS: CALCIUM 8.4 mg/dl (8.4-10.2); CREATININE 0.7 mg/dl (0.44-1.00); MAGNESIUM 1.9 mg/dl (1.7-2.5); POTASSIUM 3.8 mmol/L (3.5-5.1)
[2017-03-04] MEDS ORDERED: DIAZEPAM 5 MG TAB PO PRN (08:30)
[2017-03-04] MEDS: FOLIC ACID 1 MG TAB PO SCH (08:53)
[2017-03-04] MEDS: DOCUSATE SODIUM 100 MG CAP PO SCH ×2 (08:53→21:30)
[2017-03-04] MEDS: LOSARTAN 50 MG TAB PO SCH (08:53)
[2017-03-04] MEDS: 1/2 NS + KCL 20 MEQ 1,000 ML IV SCH ×2 (08:54→17:40)
[2017-03-04] MEDS: HYDROmorphONE 0.2 MG/ML PCA IV SCH ×2 (09:01→21:38)
--- NOTE | 2017-03-04 09:10 | CONS ---
DATE OF ADMISSION: 03/03/2017 DATE OF CONSULTATION: Thank you very much, Dr. Barone, for allowing me to evaluate the above patient, who underwent lum tanbark peeler surgery yesterday. HISTORICAL EVENTS: As you well know, this patient has had refractory low back pain and sciatica eric t has not responded to conservative therapy, and for this, elected to proceed with surgery as she di d not respond to epidural injections. Postoperatively, on the orthopedic floor, back pain is modest . She denies nausea, vomiting, abdominal pain, cough, shortness of breath or chest pain. PAST MEDICAL HISTORY: Includes: 1. Undergoing ACDF at C6-C7 in 04/2016 with resolution of radicular arm pain. 2. History of anemia. 3. Fibromyalgia. 4. History of autoimmune hepatitis. 5. Hypertension. 6. History of neuropathy. 7. Hypothyroidism. 8. No history of coronary disease. MEDICATIONS: Include: 1. Diazepam 10 mg at bedtime. 2. Folic acid 5 mg daily. 3. Levothyroxine 100 mcg per day. 4. Liothyronine 5 mcg per day. 5. Losartan/hydrochlorothiazide 100/25. 6. Omeprazole 20 mg. 7. Potassium 20 mEq per day. 8. Buspirone 10 mg t.i.d. SOCIAL HISTORY: She does not drink, does not smoke. She is a homemaker. FAMILY HISTORY: Positive for coronary artery disease. PHYSICAL EXAMINATION: GENERAL: Overweight female in no acute distress. VITAL SIGNS: BP 127/80, respirations are 20. She was afebrile. EYES: Extraocular muscles were full. NOSE, MOUTH, AND THROAT: Normal. NECK: Supple. There was no jugular venous distention, thyroid enlargement or adenopathy. LUNGS: Clear. HEART: Rhythm regular, no murmur. No third or fourth sound. ABDOMEN: Nontender. Liver and spleen were not palpable. No masses or tenderness were noted. EXTREMITIES: No edema, no calf tenderness. Feet were warm bilaterally. NEUROLOGIC: No lateralizing motor weakness. IMPRESSION: 1. Stable postop lumbar back surgery. 2. History of hypertension. Blood pressure medications will be continued. 3. Hypothyroidism. We will continue thyroid replacement. 4. Will evaluate daily for signs and symptoms of thromboembolic disease and we will follow with you . Dictated By: CHERRI BETANCOURT MD MR/TYSHAWN Conf#: [id number] DID#: [id number] CC: NICOLETTE BARONE MD; VIJI MATIAS MD;*[facility]*
[2017-03-04] MEDS: INSULIN ASPART [NOVOLOG] 3 ML PEN SC SCH ×3 (09:12→17:25)
[2017-03-04] MEDS ORDERED: LEVOTHYROXINE 100 MCG TAB PO ONE (10:00)
--- NOTE | 2017-03-04 10:08 | RADRPT ---
PROCEDURE: Intraoperative imaging of the lumbar spine with fluoroscopy. CLINICAL INDICATION: Back pain. Intraoperative. TECHNIQUE: Images of the lumbar spine were obtained in the operating room with an image intensifie r. No radiologist was in attendance. Fluoroscopy time is 189 seconds and 13 images were obtained. COMPARISON: No prior study is available for comparison. FINDINGS: Images demonstrate surgical instruments in the lower lumbar spine. There is anterior and posterior f usion at L4 - L5 - S1. IMPRESSION: 1. Intraoperative imaging of the lumbar spine. RPTAT: QQ .Daryl Costa MD, MD Date Time Electronically viewed and signed by .Daryl Costa MD, MD on 03/04/2017 10:08 .R/
[2017-03-04] MEDS: ERYTHROMYCIN BASE (EC) 250 MG TAB PO SCH ×2 (10:09→21:30)
[2017-03-04] MEDS: PANTOPRAZOLE (EC) 40 MG TAB PO SCH (12:48)
--- NOTE | 2017-03-04 13:37 | PN ---
Date/Time of Note Date/Time of Note DATE: 03/04/17 TIME: 13:36 Assessment/Plan Lines/Catheters IV Catheter Type (from Nrsg): Peripheral IV Kidd in Place (from Nrsg): Yes Assessment/Plan Assessment/Plan routine post op care s.p fusion Subjective 24 Hr Interval Summary improved leg numbness Exam/Review of Systems Vital Signs Vitals Vital Signs Date Time Temp Pulse Resp B/P Pulse Ox O2 Delivery O2 Flow Rate FiO2 03/04/17 13:00 18 03/04/17 07:22 98.5 99 121/72 97 03/04/17 03:35 Nasal Cannula 2.0 Intake and Output 03/03/17 03/03/17 03/04/17 15:00 23:00 07:00 Intake Total 3000 ml 1250 ml Output Total 925 ml 1220 ml Balance 2075 ml 30 ml Exam Free Text/Dictation nvi Results Result Diagram: 03/04/17 0657 03/04/17 0657 NICOLETTE RODRIGUEZ MD Mar 04, 2017 13:37
[2017-03-04] MEDS: DIPHENHYDRAMINE 50 MG INJ IV PRN (16:23)
[2017-03-04 19:51] VITALS: BP 110/55; PULSE 88; RESP 18
--- NOTE | 2017-03-04 23:21 | OPR ---
DATE OF OPERATION: PREOPERATIVE DIAGNOSIS: Degenerative disk disease, lumbosacral spine. POSTOPERATIVE DIAGNOSIS: Degenerative disk disease, lumbosacral spine. PROCEDURE: 1. Anterior retroperitoneal exposure and interbody fusion, L4-L5. 2. Anterior retroperitoneal exposure and interbody fusion, L5-S1. SURGEON: Dr. Tang Li CO-SURGEON: Dr. Rodriguez INFORMED CONSENT: Risks, benefits, complications, alternative therapies explained to the patient, c onsent obtained. Risks and benefits that were explained to the patient included, but not limited to , bleeding, infection, damage to bowel, damage to ureter, wound infection, wound dehiscence, DVT, PE , loss of limb, loss of life, need for further surgeries. High risk nature of the operation was ful ly explained to the patient and stressed. OPERATIVE TECHNIQUE: Patient was taken to the operating room. After induction of general anesthesi a, prepped and draped in usual sterile fashion. Midline incision was made in the left lower quadran t. Incision was taken down to subcutaneous tissue. Left anterior rectus sheath was identified and opened in the direction of the wound. The posterior rectus sheath was opened superiorly about 3 cm, retroperitoneal space was entered. Bookwalter retractor placed. The bowel contents were retracted to the right. Left rectus muscle was retracted to the left. I proceeded with identifying the left psoas muscle, iliac artery and vein, and the ureter. The iliac artery and vein were dissected using a peanut dissector. The iliolumbar artery and vein were ligated using 2-0 silk tie and titanium cl ip. The middle sacral vessels were ligated using titanium clips. The lowest left-sided segmental v essels were ligated using titanium clips. Exposure for L4-L5 was obtained by retracting the left co mmon iliac artery and vena cava and aorta to the right. Exposure for L5-S1 was obtained between the right and left common iliac artery and vein. After we completed diskectomy and placed the disk, th e prosthesis, all the x-rays were satisfactory, read by Dr. Rodriguez. Needle count and sponge coun t was correct. The wound was irrigated using antibiotic solution and closed in two layers of 0 Vicr yl suture for posterior rectus sheath and #1 Vicryl suture for anterior rectus sheath with interrupt ed sutures, 2-0 Vicryl suture for subcutaneous, and Steri-Strips for the skin. Patient tolerated pr ocedure well. Dictated By: TANG LI MD FM/NTS Conf#: [id number] DID#: [id number] CC: NICOLETTE RODRIGUEZ MD;*End[facility]*
--- NOTE | 2017-03-04 23:25 | CONS ---
DATE OF ADMISSION: 03/03/2017 DATE OF CONSULTATION: REASON FOR CONSULTATION: Evaluation for spine exposure. HISTORY OF PRESENT ILLNESS: This is a 51-year-old female with a history of degenerative disk diseas e, lumbosacral spine, who is undergoing anterior retroperitoneal exposure and interbody fusion. PAST MEDICAL HISTORY: Hypertension, hyperlipidemia, obesity. PAST SURGICAL HISTORY: None. ALLERGIES: NONE. SOCIAL HISTORY: No smoking, drinking or drug use. MEDICATIONS: List reviewed. PHYSICAL EXAMINATION: VITAL SIGNS: Blood pressure is 110/60, pulse is 80, respirations 18. CARDIOVASCULAR: Normal S1, S2. No murmurs, gallops or rubs. LUNGS: Mechanical. ABDOMEN: Soft. EXTREMITIES: Warm. IMPRESSION: Degenerative disk disease, lumbosacral spine. RECOMMENDATIONS: We will proceed with anterior retroperitoneal exposure and interbody fusion, lumbo sacral spine. Risks, benefits, complications, alternative therapies explained to the patient, conse nt obtained. Risks and benefits that were explained to the patient included, but not limited to, bl eeding, infection, damage to the bowel, damage to ureter, DVT, PE, loss of limb, loss of life. All questions answered. Dictated By: TANG WINCHESTER MD FM/NTS Conf#: [id number] DID#: [id number] CC: NICOLETTE RODRIGUEZ MD;*End[facility]*
[2017-03-05] MEDS: ACCU-CHEK XX SCH (01:43)
[2017-03-05] MEDS ORDERED: ACCU-CHEK XX SCH (02:00)
[2017-03-05] MEDS: PANTOPRAZOLE (EC) 40 MG TAB PO SCH (05:03)
[2017-03-05] MEDS: 1/2 NS + KCL 20 MEQ 1,000 ML IV SCH ×2 (05:03→13:55)
[2017-03-05 05:31] LABS: ABNORMAL IP MESSAGE 1; BASOPHILS % 0.1 % (0.0-2.0); EOSINOPHILS # 0.1 10^3/ul (0.0-0.5); EOSINOPHILS % 0.5 % (0.0-7.0); HEMATOCRIT 30.6 % (37.0-47.0); HEMOGLOBIN 9.9 g/dl (12.0-16.0); LYMPHOCYTES # 2.9 10^3/ul (0.8-2.9); MEAN CORPUSCULAR HEMOGLOBIN 28.7 pg (29.0-33.0); MEAN CORPUSCULAR HGB CONC 32.4 g/dl (32.0-37.0); MEAN CORPUSCULAR VOLUME 88.7 fl (82.0-101.0); MEAN PLATELET VOLUME 10.3 fl (7.4-10.4); MONOCYTE # 1.8 10^3/ul (0.3-0.9); MONOCYTES % 10.7 % (0.0-11.0); NEUTROPHIL # 11.5 10^3/ul (1.6-7.5); NEUTROPHILS % 70.2 % (39.0-77.0); PLATELET COUNT 322 10^3/UL (140-415); RED BLOOD COUNT 3.45 10^6/ul (4.20-5.40); RED CELL DISTRIBUTION WIDTH 14.1 % (11.5-14.5); WHITE BLOOD COUNT 16.4 10^3/ul (4.8-10.8)
[2017-03-05] MEDS: LEVOTHYROXINE 100 MCG TAB PO SCH (06:09)
[2017-03-05 06:13] LABS: POSITIVE DIFF @See below
[2017-03-05 06:18] LABS: ALBUMIN 3.1 g/dl (3.3-4.9); BILIRUBIN,INDIRECT 0.1 mg/dl (0-1.1); BILIRUBIN,TOTAL 0.1 mg/dl (0.2-1.3); TOTAL PROTEIN 6.1 g/dl (6.1-8.1)
[2017-03-05 06:26] LABS: CALCIUM 8.4 mg/dl (8.4-10.2); CREATININE 0.62 mg/dl (0.44-1.00); POTASSIUM 3.6 mmol/L (3.5-5.1)
[2017-03-05] MEDS: INSULIN ASPART [NOVOLOG] 3 ML PEN SC SCH ×3 (07:20→17:25)
[2017-03-05 07:44] VITALS: BP 115/62; RESP 20
--- NOTE | 2017-03-05 07:55 | CONS ---
Date/Time of Note Date/Time of Note DATE: 03/05/17 TIME: 07:52 Assessment/Plan Assessment/Plan Additional Assessment/Plan 1. Stable postop lumbar back surgery. 2. HBP, controlled 3. Hypothyroidism, replacement rx oredered 4. Mild lower abd discomfort not unexpected, gaseous distension. 5. WBC has inc, urine cult is pending Consultation Date/Type/Reason Admit Date/Time Mar 03, 2017 at 10:00 Initial Consult Date Detailed Summary Respiratory: cough (mild and is not productive), No shortness of breath Cardiovascular: No chest pain, No palpitations Gastrointestinal: other (mild cramping lower abd), No nausea, No vomiting Genitourinary: other (felix in place) Exam/Review of Systems Vital Signs Vitals Vital Signs Date Time Temp Pulse Resp B/P Pulse Ox O2 Delivery O2 Flow Rate FiO2 03/05/17 07:44 98.2 106 20 115/62 96 03/04/17 20:39 Nasal Cannula 2.0 Intake and Output 03/04/17 03/04/17 03/05/17 15:00 23:00 07:00 Intake Total 200 ml 2280 ml 2500 ml Output Total 1000 ml 2000 ml Balance 200 ml 1280 ml 500 ml Exam Neck: No jvd Respiratory: clear to auscultation Cardiovascular: regular rate and rhythm Gastrointestinal: soft, No tender Results Result Diagram: 03/05/17 0453 03/05/17 0453 Results 24 hrs Laboratory Tests Test 03/04/17 09:06 03/04/17 12:47 03/04/17 17:38 03/05/17 04:53 Bedside Glucose 200 118 124 White Blood Count 16.4 H Red Blood Count 3.45 L Hemoglobin 9.9 L Hematocrit 30.6 L Mean Corpuscular Volume 88.7 Mean Corpuscular Hemoglobin 28.7 L Mean Corpuscular Hemoglobin Concent 32.4 Red Cell Distribution Width 14.1 Platelet Count 322 Mean Platelet Volume 10.3 Neutrophils % 70.2 Lymphocytes % 18.0 Monocytes % 10.7 Eosinophils % 0.5 Basophils % 0.1 Nucleated Red Blood Cells % 0.0 Neutrophils # 11.5 H Lymphocytes # 2.9 Monocytes # 1.8 H Eosinophils # 0.1 Basophils # 0.0 Nucleated Red Blood Cells # 0.0 Sodium Level 136 Potassium Level 3.6 Chloride Level 97 Carbon Dioxide Level 28 Anion Gap 15 Blood Urea Nitrogen 9 Creatinine 0.62 Glucose Level 127 # Hemoglobin A1c 6.1 H Calcium Level 8.4 Phosphorus Level 2.6 Magnesium Level 2.0 Total Bilirubin 0.1 L Direct Bilirubin 0.00 Indirect Bilirubin 0.1 Aspartate Amino Transf (AST/SGOT) 75 H Alanine Aminotransferase (ALT/SGPT) 58 Alkaline Phosphatase 61 Total Protein 6.1 # Albumin 3.1 #L Medications Medications Current Medications Oxycodone/ Acetaminophen (Endocet (10/ 325)) 1 tab Q4H PRN PO PAIN LEVEL 1-5; Start 03/03/17 at 12:00 Oxycodone/ Acetaminophen (Endocet (10/ 325)) 2 tab Q4H PRN PO PAIN LEVEL 6-10; Start 03/03/17 at 12:00 Hydromorphone HCl (Dilaudid) 0.2 mg Q1H PRN IV BREAKTHROUGH PAIN; Start at 12:00 Bisacodyl (Dulcolax Supp) 10 mg DAILY PRN [place] CONSTIPATION; Start 03/03/17 at 12:00 Docusate Sodium (Colace) 100 mg BID PO Last administered on 03/04/17 21:30; Admin Dose 100 MG; Start 03/03/17 at 21:00 Al Hydrox/Mg Hydrox/Simethicone (Mag-Al Plus) 15 ml Q6H PRN PO CONSTIPATION/ DYSPEPSIA; Start 03/03/17 at 12:00 Acetaminophen (Tylenol Tab) 650 mg Q4H PRN PO ALATORRE OR TEMP GREATER THAN 101.3F; Start 03/03/17 at 12:00 Cyclobenzaprine HCl (Flexeril) 10 mg TID PRN PO MUSCLE SPASMS Last administered on 03/03/17 21:39; Admin Dose 10 MG; Start 03/03/17 at 12:00 Phenol (Cepastat Lozenge) 1 lozenge PRN PRN MT SORE THROAT Last administered on 03/04/17 03:15; Admin Dose 1 LOZENGE; Start 03/03/17 at 12:00 Diphenhydramine HCl (Benadryl) 25 mg Q6H PRN IV ITCHING Last administered on 16:23; Admin Dose 25 MG; Start 03/03/17 at 12:00 Naloxone HCl (Narcan) 0.2 mg Q2M PRN IV RR 8 BREATHS/MIN OR LESS; Start at 12:00 Hydromorphone HCl (Dilaudid LEGAL INVESTIGATOR) LEGAL INVESTIGATOR to be started in PACU Q4PCA IV Last administered on 03/04/17 21:38; Admin Dose 6 MG; Start 03/03/17 at 12:00 Miscellaneous Information 1. Hold LEGAL INVESTIGATOR at 1,000... LEGAL INVESTIGATOR IV ; Start 03/03/17 at 12 :00 Miscellaneous Information 1 ea NOTE XX ; Start 03/03/17 at 20:00 Glucose (Glutose) 15 gm Q15M PRN PO DECREASED GLUCOSE; Start 03/03/17 at 20:00 Glucose (Glutose) 22.5 gm Q15M PRN PO DECREASED GLUCOSE; Start 03/03/17 at 20: 00 Dextrose (D50w Syringe) 25 ml Q15M PRN IV DECREASED GLUCOSE; Start 03/03/17 at 20:00 Dextrose (D50w Syringe) 50 ml Q15M PRN IV DECREASED GLUCOSE; Start 03/03/17 at 20:00 Glucagon (Glucagen) 1 mg Q15M PRN IM DECREASED GLUCOSE; Start 03/03/17 at 20: 00 Glucose (Glutose) 15 gm Q15M PRN BUCCAL DECREASED GLUCOSE; Start 03/03/17 at 20:00 Ondansetron HCl (Zofran Inj) 4 mg Q4H PRN IV NAUSEA AND/OR VOMITING; Start at 03:00 Diagnostic Test (Pha) 1 ea 1 ea 02 XX ; Start 03/05/17 at 02:00 Potassium Chloride/Sodium Chloride (1/2 NS + KCl 20 Meq) 1,000 ml @ 100 mls/hr Q10H IV Last administered on 03/05/17 05:03; Admin Dose 100 MLS/HR; Start at 08:00 Folic Acid (Folic Acid) 1 mg DAILY PO Last administered on 03/04/17 08:53; Admin Dose 1 MG; Start 03/04/17 at 09:00 Losartan Potassium (Cozaar) 100 mg DAILY PO Last administered on 03/04/17 08: 53; Admin Dose 100 MG; Start 03/04/17 at 09:00 Pantoprazole (Protonix Tab) 40 mg DAILY@06 PO Last administered on 03/05/17 05:03; Admin Dose 40 MG; Start 03/04/17 at 12:00 Diazepam (Valium) 10 mg HS PRN PO ANXIETY; Start 03/04/17 at 08:30 Erythromycin (Erythromycin Base (Ec)) 250 mg BID PO Last administered on 21:30; Admin Dose 250 MG; Start 03/04/17 at 09:00 CHERRI BETANCOURT MD Mar 05, 2017 07:55
[2017-03-05] MEDS ORDERED: POTASSIUM CHLORIDE (SR) 10 MEQ TAB PO ONE (08:00)
[2017-03-05] MEDS: LOSARTAN 50 MG TAB PO SCH (08:13)
[2017-03-05] MEDS: ERYTHROMYCIN BASE (EC) 250 MG TAB PO SCH ×2 (08:43→20:42)
[2017-03-05] MEDS: LIOTHYRONINE 5 MCG TAB PO SCH (08:43)
[2017-03-05] MEDS: DOCUSATE SODIUM 100 MG CAP PO SCH ×2 (08:43→20:43)
[2017-03-05] MEDS: FOLIC ACID 1 MG TAB PO SCH (08:43)
[2017-03-05] MEDS: OXYCODONE/ACETAMINOPHEN (10/325) TAB PO PRN ×3 (09:45→20:43)
--- NOTE | 2017-03-05 12:06 | PN ---
Date/Time of Note Date/Time of Note DATE: 03/05/17 TIME: 12:05 Assessment/Plan Lines/Catheters IV Catheter Type (from Nrsg): Peripheral IV Kidd in Place (from Nrsg): Yes Assessment/Plan Assessment/Plan Status post fusion. Removed MARKETING TRAINEE and Kidd today. Continue with physical therapy. Discharge planning. Will monitor hematocrit. Patient is asymptomatic Subjective 24 Hr Interval Summary Improved pain. Positive flatus Exam/Review of Systems Vital Signs Vitals Vital Signs Date Time Temp Pulse Resp B/P Pulse Ox O2 Delivery O2 Flow Rate FiO2 03/05/17 09:45 16 03/05/17 07:44 98.2 106 115/62 96 03/04/17 20:39 Nasal Cannula 2.0 Intake and Output 03/04/17 03/04/17 03/05/17 15:00 23:00 07:00 Intake Total 200 ml 2280 ml 2500 ml Output Total 1000 ml 2000 ml Balance 200 ml 1280 ml 500 ml Exam Free Text/Dictation Neuro intact Results Result Diagram: 03/05/17 0453 03/05/17 0453 NICOLETTE RODRIGUEZ MD Mar 05, 2017 12:06
[2017-03-05 14:50] VITALS: BP 114/64; RESP 20
[2017-03-05 20:30] VITALS: BP 111/53; RESP 19
[2017-03-05] MEDS: CYCLOBENZAPRINE 10 MG TAB PO PRN (22:17)
[2017-03-06 02:00] VITALS: BP 109/51; RESP 18
[2017-03-06] MEDS: ACCU-CHEK XX SCH (02:00)
[2017-03-06] MEDS: PANTOPRAZOLE (EC) 40 MG TAB PO SCH (05:02)
[2017-03-06 05:54] LABS: BASOPHILS % 0.2 % (0.0-2.0); EOSINOPHILS # 0.2 10^3/ul (0.0-0.5); EOSINOPHILS % 1.5 % (0.0-7.0); HEMATOCRIT 31.4 % (37.0-47.0); HEMOGLOBIN 10.3 g/dl (12.0-16.0); LYMPHOCYTES # 3.7 10^3/ul (0.8-2.9); LYMPHOCYTES % 27.5 % (15.0-51.0); MEAN CORPUSCULAR HEMOGLOBIN 28.5 pg (29.0-33.0); MEAN CORPUSCULAR HGB CONC 32.8 g/dl (32.0-37.0); MEAN CORPUSCULAR VOLUME 86.7 fl (82.0-101.0); MEAN PLATELET VOLUME 10.5 fl (7.4-10.4); MONOCYTE # 1.4 10^3/ul (0.3-0.9); MONOCYTES % 10.1 % (0.0-11.0); NEUTROPHIL # 8.2 10^3/ul (1.6-7.5); NEUTROPHILS % 60.3 % (39.0-77.0); PLATELET COUNT 379 10^3/UL (140-415); RED BLOOD COUNT 3.62 10^6/ul (4.20-5.40); RED CELL DISTRIBUTION WIDTH 13.7 % (11.5-14.5); WHITE BLOOD COUNT 13.5 10^3/ul (4.8-10.8)
[2017-03-06 06:29] LABS: CALCIUM 9.1 mg/dl (8.4-10.2); CREATININE 0.6 mg/dl (0.44-1.00); MAGNESIUM 2.1 mg/dl (1.7-2.5); POTASSIUM 3.8 mmol/L (3.5-5.1)
[2017-03-06] MEDS: LEVOTHYROXINE 100 MCG TAB PO SCH (06:50)
[2017-03-06] MEDS: INSULIN ASPART [NOVOLOG] 3 ML PEN SC SCH ×2 (07:20→11:10)
--- NOTE | 2017-03-06 07:41 | CONS ---
Date/Time of Note Date/Time of Note DATE: 03/06/17 TIME: 07:40 Assessment/Plan Assessment/Plan Additional Assessment/Plan 1. Stable postop lumbar back surgery. 2. HBP, controlled 3. Hypothyroidism, replacement rx oredered 4. Mild lower abd discomfort has improved 5. WBC has decreasing urine cult is neg Consultation Date/Type/Reason Admit Date/Time Mar 03, 2017 at 10:00 Detailed Summary Respiratory: No cough Cardiovascular: No chest pain Gastrointestinal: no complaints Genitourinary: No dysuria, No hematuria Musculoskeletal: back pain (mild) Exam/Review of Systems Vital Signs Vitals Vital Signs Date Time Temp Pulse Resp B/P Pulse Ox O2 Delivery O2 Flow Rate FiO2 03/06/17 02:00 98.6 90 18 109/51 95 03/04/17 20:39 Nasal Cannula 2.0 Intake and Output 03/05/17 03/05/17 03/06/17 14:59 22:59 06:59 Intake Total 450 ml 1920 ml 500 ml Output Total 1100 ml Balance 450 ml 820 ml 500 ml Exam Neck: No jvd Respiratory: clear to auscultation Cardiovascular: regular rate and rhythm Gastrointestinal: soft, No tender Extremities: No edema, No tenderness (bilat) Results Result Diagram: 03/06/17 0502 03/06/17 0502 Results 24 hrs Laboratory Tests Test 03/05/17 08:42 03/05/17 12:38 03/05/17 17:11 03/06/17 05:02 Bedside Glucose 102 134 132 White Blood Count 13.5 H Red Blood Count 3.62 L Hemoglobin 10.3 L Hematocrit 31.4 L Mean Corpuscular Volume 86.7 Mean Corpuscular Hemoglobin 28.5 L Mean Corpuscular Hemoglobin Concent 32.8 Red Cell Distribution Width 13.7 Platelet Count 379 Mean Platelet Volume 10.5 H Neutrophils % 60.3 Lymphocytes % 27.5 Monocytes % 10.1 Eosinophils % 1.5 Basophils % 0.2 Nucleated Red Blood Cells % 0.0 Neutrophils # 8.2 H Lymphocytes # 3.7 H Monocytes # 1.4 H Eosinophils # 0.2 Basophils # 0.0 Nucleated Red Blood Cells # 0.0 Sodium Level 138 Potassium Level 3.8 Chloride Level 99 Carbon Dioxide Level 30 Anion Gap 13 Blood Urea Nitrogen 8 Creatinine 0.60 Glucose Level 124 Calcium Level 9.1 Magnesium Level 2.1 Medications Medications Current Medications Oxycodone/ Acetaminophen (Endocet (10/ 325)) 1 tab Q4H PRN PO PAIN LEVEL 1-5 Last administered on 03/05/17 20:43; Admin Dose 1 TAB; Start 03/03/17 at 12: 00 Oxycodone/ Acetaminophen (Endocet (10/ 325)) 2 tab Q4H PRN PO PAIN LEVEL 6-10 Last administered on 03/06/17 05:03; Admin Dose 2 TAB; Start 03/03/17 at 12: 00 Hydromorphone HCl (Dilaudid) 0.2 mg Q1H PRN IV BREAKTHROUGH PAIN; Start at 12:00 Bisacodyl (Dulcolax Supp) 10 mg DAILY PRN [place] CONSTIPATION; Start 03/03/17 at 12:00 Docusate Sodium (Colace) 100 mg BID PO Last administered on 03/05/17 20:43; Admin Dose 100 MG; Start 03/03/17 at 21:00 Al Hydrox/Mg Hydrox/Simethicone (Mag-Al Plus) 15 ml Q6H PRN PO CONSTIPATION/ DYSPEPSIA; Start 03/03/17 at 12:00 Acetaminophen (Tylenol Tab) 650 mg Q4H PRN PO ALATORRE OR TEMP GREATER THAN 101.3F; Start 03/03/17 at 12:00 Cyclobenzaprine HCl (Flexeril) 10 mg TID PRN PO MUSCLE SPASMS Last administered on 03/05/17 22:17; Admin Dose 10 MG; Start 03/03/17 at 12:00 Phenol (Cepastat Lozenge) 1 lozenge PRN PRN MT SORE THROAT Last administered on 03/04/17 03:15; Admin Dose 1 LOZENGE; Start 03/03/17 at 12:00 Diphenhydramine HCl (Benadryl) 25 mg Q6H PRN IV ITCHING Last administered on 16:23; Admin Dose 25 MG; Start 03/03/17 at 12:00 Naloxone HCl (Narcan) 0.2 mg Q2M PRN IV RR 8 BREATHS/MIN OR LESS; Start at 12:00 Hydromorphone HCl (Dilaudid TERRITORY ACCOUNT MANAGER) TERRITORY ACCOUNT MANAGER to be started in PACU Q4PCA IV Last administered on 03/04/17 21:38; Admin Dose 6 MG; Start 03/03/17 at 12:00 Miscellaneous Information 1. Hold TERRITORY ACCOUNT MANAGER at 1,000... TERRITORY ACCOUNT MANAGER IV ; Start 03/03/17 at 12 :00 Miscellaneous Information 1 ea NOTE XX ; Start 03/03/17 at 20:00 Glucose (Glutose) 15 gm Q15M PRN PO DECREASED GLUCOSE; Start 03/03/17 at 20:00 Glucose (Glutose) 22.5 gm Q15M PRN PO DECREASED GLUCOSE; Start 03/03/17 at 20: 00 Dextrose (D50w Syringe) 25 ml Q15M PRN IV DECREASED GLUCOSE; Start 03/03/17 at 20:00 Dextrose (D50w Syringe) 50 ml Q15M PRN IV DECREASED GLUCOSE; Start 03/03/17 at 20:00 Glucagon (Glucagen) 1 mg Q15M PRN IM DECREASED GLUCOSE; Start 03/03/17 at 20: 00 Glucose (Glutose) 15 gm Q15M PRN BUCCAL DECREASED GLUCOSE; Start 03/03/17 at 20:00 Ondansetron HCl (Zofran Inj) 4 mg Q4H PRN IV NAUSEA AND/OR VOMITING; Start at 03:00 Diagnostic Test (Pha) 1 ea 1 ea 02 XX ; Start 03/05/17 at 02:00 Potassium Chloride/Sodium Chloride (1/2 NS + KCl 20 Meq) 1,000 ml @ 100 mls/hr Q10H IV Last administered on 03/05/17 05:03; Admin Dose 100 MLS/HR; Start at 08:00 Folic Acid (Folic Acid) 1 mg DAILY PO Last administered on 03/05/17 08:43; Admin Dose 1 MG; Start 03/04/17 at 09:00 Losartan Potassium (Cozaar) 100 mg DAILY PO Last administered on 03/04/17 08: 53; Admin Dose 100 MG; Start 03/04/17 at 09:00 Pantoprazole (Protonix Tab) 40 mg DAILY@06 PO Last administered on 03/06/17 05:02; Admin Dose 40 MG; Start 03/04/17 at 12:00 Diazepam (Valium) 10 mg HS PRN PO ANXIETY; Start 03/04/17 at 08:30 Erythromycin (Erythromycin Base (Ec)) 250 mg BID PO Last administered on t 20:42; Admin Dose 250 MG; Start 03/04/17 at 09:00 CHERRI BETANCOURT MD Mar 06, 2017 07:41
--- NOTE | 2017-03-06 07:51 | DS ---
Date/Time of Note Date/Time of Note DATE: 03/06/17 TIME: 07:51 Discharge Summary Admission/Discharge Info Admit Date/Time Mar 03, 2017 at 10:00 Discharge Date/Time March 06 Discharge Diagnosis Status post fusion Procedures Lumbar fusion Hospital Course The patient was admitted to the [facility] after undergoing the above procedure. Her postoperative course was uncomplicated. By postoperative day 3 she was deemed stable for discharge with follow-up arranged with the undersigned Home Meds Reported Medications Folic Acid* (Folic Acid*) 1 Mg Tablet, 1 MG PO DAILY, TAB 03/03/17 Potassium Chloride* (Potassium Chloride*) 20 Meq Tablet.er, 20 MEQ PO QHS, TAB.SA 05/14/16 Losartan-Hydrochlorothiazide (Losartan-HCTZ) 100-25 Mg Tab, 1 TAB PO QAM, TAB 05/14/16 Liothyronine Sodium* (Cytomel*) 5 Mcg Tablet, 5 MCG PO AC BREAKFAST, TAB 05/14/16 Levothyroxine Sodium* (Levoxyl*) 100 Mcg Tablet, 100 MCG PO BEFORE BREAKFAST, # 30 TAB 05/14/16 Erythromycin* (Erythromycin* EC) 250 Mg Capsule.dr, 250 MG PO BID, TAB 05/14/16 Discontinued Reported Medications Triamcinolone Acetonide* (Kenalog*) 0.1%-15GM Oint, 1 APPLIC TOP BID, #1 EA WITH NYSTATIN 05/14/16 Eflornithine HCl (Vaniqa) 45 Gm Cream..g., 45 GM TP BID 05/14/16 Omeprazole* (Omeprazole*) 20 Mg Capsule.dr, 20 MG PO DAILY Y for GASTROINTESTINAL UPSET, #30 CAP 05/14/16 Diazepam* (Diazepam*) 10 Mg Tablet, 10 MG PO QHS, TAB 05/14/16 Primary Care Provider Not On Staff Doctor Pending Labs Laboratory Tests Test 03/05/17 08:42 03/05/17 12:38 03/05/17 17:11 03/06/17 05:02 Bedside Glucose 102mg/dL (70-220) 134mg/dL (70-220) 132mg/dL (70-220) White Blood Count 13.510^3/ul (4.8-10.8) Red Blood Count 3.6210^6/ul (4.20-5.40) Hemoglobin 10.3g/dl (12.0-16.0) Hematocrit 31.4% (37.0-47.0) Mean Corpuscular Volume 86.7fl (82.0-101.0) Mean Corpuscular Hemoglobin 28.5pg (29.0-33.0) Mean Corpuscular Hemoglobin Concent 32.8g/dl (32.0-37.0) Red Cell Distribution Width 13.7% (11.5-14.5) Platelet Count 65900^3/UL (140-415) Mean Platelet Volume 10.5fl (7.4-10.4) Neutrophils % 60.3% (39.0-77.0) Lymphocytes % 27.5% (15.0-51.0) Monocytes % 10.1% (0.0-11.0) Eosinophils % 1.5% (0.0-7.0) Basophils % 0.2% (0.0-2.0) Nucleated Red Blood Cells % 0.0/100WBC (0.0-0.0) Neutrophils # 8.210^3/ul (1.6-7.5) Lymphocytes # 3.710^3/ul (0.8-2.9) Monocytes # 1.410^3/ul (0.3-0.9) Eosinophils # 0.210^3/ul (0.0-0.5) Basophils # 0.010^3/ul (0.0-0.1) Nucleated Red Blood Cells # 0.010^3/ul (0.0-0.0) Sodium Level 138mmol/L (135-144) Potassium Level 3.8mmol/L (3.5-5.1) Chloride Level 99mmol/L (97-110) Carbon Dioxide Level 30mmol/L (21-31) Anion Gap 13 (8-16) Blood Urea Nitrogen 8mg/dl (7-20) Creatinine 0.60mg/dl (0.44-1.00) Glucose Level 124mg/dl (70-220) Calcium Level 9.1mg/dl (8.4-10.2) Magnesium Level 2.1mg/dl (1.7-2.5) NICOLETTE RODRIGUEZ MD Mar 06, 2017 07:51
[2017-03-06 08:53] VITALS: BP 125/80; RESP 18
[2017-03-06] MEDS: ERYTHROMYCIN BASE (EC) 250 MG TAB PO SCH (08:56)
[2017-03-06] MEDS: LOSARTAN 50 MG TAB PO SCH (08:57)
[2017-03-06] MEDS: LIOTHYRONINE 5 MCG TAB PO SCH (08:57)
[2017-03-06] MEDS: DOCUSATE SODIUM 100 MG CAP PO SCH (08:57)
[2017-03-06] MEDS: FOLIC ACID 1 MG TAB PO SCH (08:57)
[2017-03-06 08:59] VITALS: PULSE 90
[2017-03-06] MEDS: 1/2 NS + KCL 20 MEQ 1,000 ML IV SCH ×2 (09:43)
[2017-03-06] MEDS ORDERED: HYDROmorphONE 2 MG TAB PO PRN (11:43)
[2017-03-06] MEDS: OXYCODONE/ACETAMINOPHEN (10/325) TAB PO PRN (12:18)
== END 2017-03-06 12:30 | disposition home or self-care (01) | DRG 455 ==
LOC: REC 10:00 → MS1 21:18
PROVIDERS: ADMIT Specialist; ATTEND Specialist
PROC: 0SG00K1 Fusion of Lumbar Vertebral Joint with Nonautologous Tissue Substitute, Posterior Approach, Posterior Column, Open Approach (ICD-10-PCS; 2017-03-03)
PROC: 0ST20ZZ Resection of Lumbar Vertebral Disc, Open Approach (ICD-10-PCS; 2017-03-03)
PROC: 0ST40ZZ Resection of Lumbosacral Disc, Open Approach (ICD-10-PCS; 2017-03-03)
PROC: 0SG30A0 Fusion of Lumbosacral Joint with Interbody Fusion Device, Anterior Approach, Anterior Column, Open Approach (ICD-10-PCS; 2017-03-03)
PROC: 0SG30K1 Fusion of Lumbosacral Joint with Nonautologous Tissue Substitute, Posterior Approach, Posterior Column, Open Approach (ICD-10-PCS; 2017-03-03)
PROC: 07DR3ZZ Extraction of Iliac Bone Marrow, Percutaneous Approach (ICD-10-PCS; 2017-03-03)
PROC: 4A033R1 Measurement of Arterial Saturation, Peripheral, Percutaneous Approach (ICD-10-PCS; 2017-03-03)
PROC: 0SG00A0 Fusion of Lumbar Vertebral Joint with Interbody Fusion Device, Anterior Approach, Anterior Column, Open Approach (ICD-10-PCS; principal; 2017-03-03 12:00)
DX: M51.16 Intervertebral disc disorders with radiculopathy, lumbar region (principal); I10 Essential (primary) hypertension; M48.061 Spinal stenosis, lumbar region without neurogenic claudication; M51.17 Intervertebral disc disorders with radiculopathy, lumbosacral region; M48.07 Spinal stenosis, lumbosacral region; E03.9 Hypothyroidism, unspecified; E78.5 Hyperlipidemia, unspecified; E66.9 Obesity, unspecified; Z68.39 Body mass index [BMI] 39.0-39.9, adult
CPT/HCPCS: 36600; 71010; 72020; 72110; 80048; 80053; 80076; 81001; 82803; 82962; 83036; 83735; 84100; 84703; 85025; 85610; 85730; 86850; 86900; 86901; 86920; 86999; 87086; 97116; 97163; 97530; J1940; C9113; J0690; J1100; J1170; J1200; J1644; J1815; J2250; J2370; J2405; J2710; J3010; J3480; V2790